=== PATIENT | female | born 1965 | race Caucasian/White ===

== ENCOUNTER 2017-01-15 17:20 | Inpatient (IN) | payer MEDICAID ==
[2017-01-15 17:27] VITALS: O2SAT 99
[2017-01-15 18:18] LABS: HEMATOCRIT 35.8 % (34.0-47.0); MEAN CELL VOLUME 88.7 fl (81.0-99.0); MEAN CORPUSCULAR HEMOGLOBIN 29.4 pg (27.0-31.0); MEAN CORPUSCULAR HGB CONC 33.1 g/dL (33.0-37.0); RED CELL DISTRIBUTION WIDTH 14.5 % (11.5-14.5); WHITE BLOOD COUNT 9.4 K/uL (4.8-10.8)
[2017-01-15 18:24] LABS: RBC URINE 13 /hpf (0-3); URINE BACTERIA RARE (<OCC); URINE BILIRUBIN SMALL (NEGATIVE); URINE BLOOD MODERATE (NEGATIVE); URINE CALCIUM OXALATE CRYSTALS OCC /hpf (<OCC); URINE COLOR AMBER (YELLOW); URINE GLUCOSE (UA) NEG (Normal); URINE KETONE TRACE mg/dL (NEGATIVE); URINE LEUKOCYTE ESTERASE NEG Leu/uL (Negative); URINE PROTEIN 30 mg/dL (NEGATIVE); WBC URINE 3 /hpf (0-5)
[2017-01-15 18:36] LABS: ALB/GLOB RATIO 1.3 (1.0-2.1); ALCOHOL SERUM < 10 mg/dl (0-10); ALKALINE PHOSPHATASE 47 U/L (38-126); ALT/SGPT 27 U/L (9-52); AST/SGOT 24 U/L (14-36); BILIRUBIN,TOTAL 0.9 mg/dl (0.2-1.3); BLOOD UREA NITROGEN 13 mg/dl (7-17); CARBON DIOXIDE 27 mmol/L (22-30); CHLORIDE 103 mmol/L (98-107); GFR AFRICAN-AMERICAN > 60; GLUCOSE,RANDOM 86 mg/dL (65-105); POTASSIUM 4.1 MMOL/L (3.6-5.0); SODIUM 141 mmol/l (132-148); TOTAL PROTEIN 8.1 G/DL (6.3-8.2)
--- NOTE | 2017-01-15 19:03 | ED PDOC ---
HPI: Psych/Substance Abuse Time Seen by Provider: 01/15/17 17:41 Chief Complaint (Nursing): Psychiatric Evaluation Chief Complaint (Provider): hearing voices, "manic", not sleeping History Per: Patient History/Exam Limitations: no limitations Onset/Duration Of Symptoms: Days Current Symptoms Are (Timing): Still Present Additional Complaint(s): PT reports history of bipolar and state she has been off medications for 1 month. PT states she has not slept in a few days and states [facility] time this [facility] Pt also reports feeling very anxious. She states she has hit rock bottom. Past Medical History Reviewed: Historical Data, Nursing Documentation, Vital Signs Vital Signs: Last Vital Signs Temp 98.4 F 01/15/17 17:24 Pulse 73 01/15/17 17:48 Resp 20 01/15/17 17:24 BP 132/100 H 01/15/17 17:48 Pulse Ox 99 01/15/17 17:24 - Medical History PMH: Anxiety, Bipolar Disorder, Depression, Post Traumatic Stress Disorder - Surgical History Surgical History: No Surg Hx - Family History Family History: States: No Known Family Hx - Living Arrangements Living Arrangements: With Family - Social History Current smoker - smoking cessation education provided: No Alcohol: None Drugs: Denies - Home Medications Home Medications: Ambulatory Orders Medication Instructions Recorded No Known Home Med 01/15/17 - Allergies Allergies/Adverse Reactions: Allergies Allergy/AdvReac Type Severity Reaction Status Date / Time No Known Allergies Allergy Verified 01/15/17 17:24 Review of Systems ROS Statement: Except As Marked, All Systems Reviewed And Found Negative Constitutional: Negative for: Fever, Chills Psych: Positive for: Anxiety, Psychosis. Negative for: Suicidal ideation Physical Exam - Reviewed Nursing Documentation Reviewed: Yes Vital Signs Reviewed: Yes - Physical Exam Appears: Positive for: Well, Non-toxic, No Acute Distress Head Exam: Positive for: ATRAUMATIC, NORMAL INSPECTION, NORMOCEPHALIC Skin: Positive for: Normal Color, Warm, DRY Eye Exam: Positive for: Normal appearance, EOMI, PERRL ENT: Positive for: Normal ENT Inspection Neck: Positive for: Normal, Painless ROM Cardiovascular/Chest: Positive for: Regular Rate, Rhythm Respiratory: Positive for: CNT, Normal Breath Sounds Gastrointestinal/Abdominal: Positive for: Normal Exam, Bowel Sounds, Soft. Negative for: Tenderness Back: Positive for: Normal Inspection Extremity: Positive for: Normal ROM Neurologic/Psych: Positive for: Alert, Oriented - Laboratory Results Result Diagrams: 01/15/17 18:05 01/15/17 18:05 - ECG O2 Sat by Pulse Oximetry: 99 Pulse Ox Interpretation: Normal Disposition - Clinical Impression Clinical Impression: Bipolar disorder - Patient ED Disposition Is Patient to be Admitted: Yes - Disposition Disposition Time: 20:05 Condition: GOOD Forms: CodeEval (Tristanian) - Pt Status Changed To: Hospital Disposition Of: Inpatient - Admit Certification Admit to Inpatient:: After my assessment, the patient will require hospitalization for at least two midnights. This is because of the severity of symptoms shown, intensity of services needed, and/or the medical risk in this patient being treated as an outpatient. - POA Present On Arrival: None
--- NOTE | 2017-01-15 22:07 | ED PDOC ---
- Laboratory Results Result Diagrams: 01/15/17 18:05 01/15/17 18:05 - ECG O2 Sat by Pulse Oximetry: 99 - Progress ED Course And Treament: 1999 Signed out to me pending BP re-evaluation 2100 Repeat BP: 136/97 Disposition - Clinical Impression Clinical Impression: Bipolar disorder - POA Present On Arrival: None - Disposition Disposition: Admitted as In-Patient Disposition Time: 21:00 Condition: STABLE
[2017-01-15] MEDS ORDERED: DiphenhydrAMINE 50 mg/ml Inj IM PRN (23:09)
[2017-01-15] MEDS ORDERED: Alum-Mag Hydrox-Simethicone Susp (30 mL) PO PRN (23:09)
[2017-01-15] MEDS ORDERED: Magnesium Hydroxide Susp 30 ml UD PO PRN (23:09)
--- NOTE | 2017-01-15 23:33 | PCM.BM ---
<SmileystephenieRobertoJarenhiren Pathak - Last Filed: 01/15/17 23:29> Treatment Plan Problems - Problems identified on initial assessmt Hopelessness/Helplessness Date Initiated: 01/15/17 Time Initiated: 23:00 Assessment reference: NA Status: Active Treatment assets and liabiliti Patient Assests: cooperative, educated (teacher), good support system Patient Liabilities: other (non compliance with medication) - Milieu Protocol Maintain good personal hygiene: daily Encourage regular showers, daily Remind patient to perform daily oral care, daily Assist patient to perform ADL's Conduct patient checks and document Observation sheet: Q15 minutes Maintain personal safety: every shift Educate patient to report safety concerns to staff, every shift Monitor environment for contraband/sharps Medication safety: Monitor for expected outcome, potential side effects: every shift, Assess barriers to learning: every shift, Assess readiness for medication education: every shift Family Contact Family involvement: Family/SO is involved Family contact: Patient agrees to contact Family contact name: [phone] - Goals for Treatment Patient goals for treatment: "I WANT TO EASE MY ANXIETY AND SLEEP" Discharge/Continuing Care - Education Needs Education Needs: Patient Medication, Patient Diagnosis/Disease Process, Patient Coping Skills, Patient Activities of Daily Living, Patient Aftercare Safety Plan - Discharge Discharge Criteria: Tolerates medication w/o severe side effects, Normal sleep pattern <Aissatou Ventura - Last Filed: 01/16/17 10:43> - Diagnosis (1) Bipolar disorder Status: Acute Interventions: Medication management, individual and group therapy, psychoeducation 01/16/17 10:44 <Araceli Madden - Last Filed: 01/16/17 11:52> Treatment Plan Problems - Problems identified on initial assessmt Hopelessness/Helplessness Priority: 1 Auditory Hallucinations Date Initiated: 01/16/17 Time Initiated: 11:47 Assessment reference: SW, NA Status: Active Priority: 2 Treatment assets and liabiliti Patient Assests: insightful, ADL independent, cognitively intact, good interpersonal skills Patient Liabilities: financial problems, other Family Contact Family contact: Telephone contact initiated by staff Family contact name: Priscilla Sprague Family contacted how many times per week?: 2 Family contact comment: [phone] Discharge/Continuing Care - Education Needs Education Needs: Family Medication, Family Diagnosis/Disease Process, Family Coping Skills, Family Community resources, Family Aftercare Safety Plan, Patient Community resources - Discharge Discharge Criteria: Free of Suicidal thoughts, Free of paranoid thoughts, Free of agitation, Ability to care for self Discharge to:: Home, With Family - Additional Comments 01/16/17 10:20 Pt will be referred to OPD upon stabilization. Rn Surgical Pcu discussed referral to [facility] vs. [facility] vs. [facility] due to lack of health insurance and applying for [facility] care. Pt reported she previously treated with [facility] and [facility]. 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 Rn Surgical Pcu will continue to follow case - Treatment Team Participation Discussed with Family/SO: No (Pt's family will be contacted and tx plan will be discussed) Was Patient/Family/SO present at Treatment Team Meeting: Yes
[2017-01-16 08:31] LABS: T4 8.8 ug/dl (5.5-11.0)
[2017-01-16 08:45] LABS: THYROID STIMULATING HORMONE 2.36 mIU/ML (0.46-4.68)
--- NOTE | 2017-01-16 10:07 | PCM.PSYCH ---
Initial Psychiatric Evaluation - Initial Psychiatric Evaluation Type of Admission: Voluntary Legal Status: Capacity Chief Complaint (in patient's own words): "I'm depressed." Patient's Reaction to Hospitalization: HPI: 51 y/o female presented the ER with complaints of depression, anxiety, and auditory hallucinations. Pt reports that she has a hx of Bipolar disorder and has not taken medication in several months since moving from the [place] to [place]. Pt reports current mood swings, poor appetite, insomnia x 4 days, anxiety, paranoia that others are in the room with her or in her apartment, feeling on edge and very overwhelmed. Pt denied current SI/HI thoughts. Pt able to contract for safety at this time. Pt reports that her current psychiatric state has severely impaired her ability to work and care for her 14 year old daughter. pt reports that her daughter is now in the care of her father. Pt reports that she has not been in mental health treatment for over two years since losing her insurance. Pt reports that she attempted to self -medicate with alcohol two days in order to help with her sleep, however reports that it was not helpful and made her mental health sx worse. Reports recent AH, but no current. PPHx: Pt reports a hx of several psych admission. Pt reports that she was last hospitalized 2 years while living in [place]. Reports h/o tx w/ multiple medications including [place], Depakote, Zyprexa, Seroquel, Wellbutrin, Klonopin , Ambien. H/o suicide attempt by OD >20 years ago. PMHx: Pt denies acute/chronic medical issues ALL: NKDA SHx: Denies drug use, reports intermittent ETOH use, no h/o w/drawals. FHx: Sister w/ schizophrenia Current Medications: Active Medications Generic Name Dose Route Start Last Admin Trade Name Freq PRN Reason Stop Dose Admin Acetaminophen 650 mg 01/15/17 23:14 Tylenol 325mg Tab PO Q4 PRN Pain, moderate (4-7) Al Hydrox/Mg Hydrox/Simethicone 30 ml 01/15/17 23:09 Maalox Plus 30 Ml PO Q4 PRN Dyspepsia Diphenhydramine HCl 50 mg 01/15/17 23:09 Benadryl IM Q6 PRN Extrapyramidal S/S Unable PO Diphenhydramine HCl 50 mg 01/15/17 23:09 Benadryl PO Q6 PRN Extrapyramidal Symptoms Diphenhydramine HCl 50 mg 01/15/17 23:12 01/15/17 23:49 Benadryl PO 50 mg HS PRN Administration Sleep Haloperidol 5 mg 01/15/17 23:09 01/15/17 23:49 Haldol PO 5 mg Q4 PRN Administration Agitation Haloperidol Lactate 5 mg 01/15/17 23:09 Haldol IM Q4 PRN Agitation, Unable to Take PO Lorazepam 2 mg 01/15/17 23:09 Ativan IM Q4 PRN Anxiety/Agitation,Unable PO Lorazepam 2 mg 01/15/17 23:09 Ativan PO Q4 PRN Anxiety/Agitation Magnesium Hydroxide 30 ml 01/15/17 23:09 Milk Of Magnesia PO HS PRN Constipation Past Psychiatric History - Past Psychiatric History Previous Treatment History: Inpatient Pertinent Medical Hx (Current Medical&Sleep Prob, Allergies): Allergies Allergy/AdvReac Type Severity Reaction Status Date / Time No Known Allergies Allergy Verified 01/15/17 17:24 No Known Home Med 01/15/17 Review of Systems - Psychiatric Psychiatric: As Per HPI, Abnormal Sleep Pattern, Anhedonia, Anxiety, Auditory Hallucinations, Change in Appetite, Depression, Difficulty Concentrating, Hopelessness, Irritability, Mood Swings, Paranoia, Suicidal Ideation Mental Status Examination - Personal Presentation Personal Presentation: Looks stated age - Affect Affect: Constricted - Motor Activity Motor Activity: Calm - Reliability in Providing Information Reliability in Providing Information: Fair - Speech Speech: Coherent - Mood Mood: Depressed - Formal Thought Process Formal Thought Process: Paranoia - Hallucinations/Delusions Additional comments: Denies AH/VH, reports recent paranoia - Obsessions/Compulsions Obsessions: No Compulsions: No - Cognitive Functions Orientation: Person, Place, Situation, Time Sensorium: Alert Attention/Concentration: Attentive Estimate of Intelligence: Average Judgement: Intact, as evidence by: Good judgement, Intact, as evidence by: Insight regarding need for hospitalization Memory: Recent intact, as evidence by: Ability to recall events of the day, Remote intact, as evidenced by: Abilit to recall sig. life events, Remote intact , as evidenced by: Ability to recall historical events - Risk Risk: Diminished functioning - Strength & Assets Inventory Strength & Assets Inventory: Cooperative DSM 5 DX - DSM 5 DSM 5 Diagnosis: Bipolar Disorder w/ psychotic features; r/o schizoaffective disorder - Recommended/Plan of Treatment Treatment Recommendations and Plan of Treatment: Bipolar Disorder w/ psychotic features; r/o schizoaffective disorder -Admit to psychiatry -Individual and group therapy -Start Risperdal 1 mg PO HS -Medicine consult -Disposition planning Projected ELOS: 3-7 days Discharge Plan and Discharge Criteria: Discharge when psychiatrically stable - Smoking Cessation Smoking Cessation Initiated: No Reason for not providing: Not indicated
--- NOTE | 2017-01-16 12:31 | CP.PCM.CON ---
History of Present Illness - History of Present Illness History of Present Illness: Reason for Consult: per hospital protocol HPI 51F no past medical history admitted to psych for paranoia and insomnia. Patient denies any complaints at this time. NAD, VSS. ROS: per HPI, 12 systems reviewed and negative PMH: denies PSH: denies FH: denies SH: denies tobacco, ETOH, IVDU Meds: as below Allergies: NKDA Vitals: reviewed and currently stable Temp Pulse Resp BP Pulse Ox 97.9 F 72 20 131/90 99 01/16/17 05:47 01/16/17 05:47 01/16/17 05:47 01/16/17 05:47 01/16/17 03:45 Exam: GEN: WDWN, alert, cooperative HEENT: NCAT, PERRL, EOMI NECK: supple, no JVD, no lymphadenopathy CARDIAC: +S1S2 RRR LUNG: CTAB No WRR ABD: SOFT NT ND BSX4 NO MASSES NO HSM EXT: +pedal pulses, equal strength NEURO: AAOx3 SKIN warm, dry PSYCH normal mood, normal affect Labs: 01/15/17 18:05 01/15/17 18:05 01/15/17 23:09 Aluminum Hydroxide/Magnesium [Maalox Plus 30 ml] 30 ml PO Q4 PRN DiphenhydrAMINE [Benadryl] 50 mg IM Q6 PRN DiphenhydrAMINE [Benadryl] 50 mg PO Q6 PRN Haloperidol Lactate [Haldol] 5 mg IM Q4 PRN Haloperidol [Haldol] 5 mg PO Q4 PRN LORazepam [Ativan] 2 mg IM Q4 PRN LORazepam [Ativan] 2 mg PO Q4 PRN Magnesium Hydroxide [Milk Of Magnesia] 30 ml PO HS PRN 01/15/17 23:12 DiphenhydrAMINE [Benadryl] 50 mg PO HS PRN 01/15/17 23:14 Acetaminophen [Tylenol 325mg tab] 650 mg PO Q4 PRN 01/16/17 10:42 Zolpidem [Ambien] 5 mg PO HS PRN 01/16/17 22:00 risperiDONE [RisperDAL Tab] 1 mg PO HS Assessment and Plan: 51F no past medical history admitted to psych for paranoia and insomnia. Patient denies any complaints at this time. NAD, VSS. Paranoia Management per psych team Past Patient History - Past Social History Alcohol: None Drugs: Denies - CARDIAC Hx Cardiac Disorders: No - PULMONARY Hx Respiratory Disorders: No - PSYCHIATRIC Hx Substance Use: No - SURGICAL HISTORY Hx Surgeries: Yes Other/Comment: L bunionectomy Meds Allergies/Adverse Reactions: Allergies Allergy/AdvReac Type Severity Reaction Status Date / Time No Known Allergies Allergy Verified 01/15/17 17:24 - Medications Medications: Current Medications Acetaminophen (Tylenol 325mg Tab) 650 mg PO Q4 PRN PRN Reason: Pain, moderate (4-7) Al Hydrox/Mg Hydrox/Simethicone (Maalox Plus 30 Ml) 30 ml PO Q4 PRN PRN Reason: Dyspepsia Diphenhydramine HCl (Benadryl) 50 mg IM Q6 PRN PRN Reason: Extrapyramidal S/S Unable PO Diphenhydramine HCl (Benadryl) 50 mg PO Q6 PRN PRN Reason: Extrapyramidal Symptoms Diphenhydramine HCl (Benadryl) 50 mg PO HS PRN PRN Reason: Sleep Last Admin: 01/15/17 23:49 Dose: 50 mg Haloperidol (Haldol) 5 mg PO Q4 PRN PRN Reason: Agitation Last Admin: 01/15/17 23:49 Dose: 5 mg Haloperidol Lactate (Haldol) 5 mg IM Q4 PRN PRN Reason: Agitation, Unable to Take PO Lorazepam (Ativan) 2 mg IM Q4 PRN PRN Reason: Anxiety/Agitation,Unable PO Lorazepam (Ativan) 2 mg PO Q4 PRN PRN Reason: Anxiety/Agitation Magnesium Hydroxide (Milk Of Magnesia) 30 ml PO HS PRN PRN Reason: Constipation Risperidone (Risperdal Tab) 1 mg PO HS FREDDY Zolpidem Tartrate (Ambien) 5 mg PO HS PRN PRN Reason: Insomnia Results - Vital Signs Recent Vital Signs: Last Vital Signs Temp 97.9 F 01/16/17 05:47 Pulse 72 01/16/17 05:47 Resp 20 01/16/17 05:47 BP 131/90 01/16/17 05:47 Pulse Ox 99 01/16/17 03:45 - Labs Result Diagrams: 01/15/17 18:05 01/15/17 18:05 Labs: Laboratory Results - last 24 hr 01/16/17 01/16/17 07:00 07:00 Hemoglobin A1c 5.9 Triglycerides 61 Cholesterol 148 LDL Cholesterol Direct 65 HDL Cholesterol 51 Thyroxine (T4) 8.80 TSH 3rd Generation 2.36
--- NOTE | 2017-01-17 11:07 | PCM.PYCHPN ---
Psychiatric Progress Note - Psychiatric Progress Note Patient seen today, length of contact: Patient evaluated, case discussed with team, chart reviewed, 35 min Patient Chief Complaint: "I'm depressed." Problems Identified/Issues Discussed: Patient reports that she continues to feel like someone is mumbling to her at night (AH) and also reports that she feels like someone is pushing her to keep her awake (tactile hallucination?). She reports continued depressed mood and does not understand why she feels depressed. She reports continued difficulty falling asleep and staying asleep. She states that Ambien has been helpful for her in the past. She is calm, cooperative and interested in attending groups. +Improved appetite. Medication Change: Yes (Increase Risperdal to 2 mg PO HS) Medical Record Reviewed: Yes Consults ordered or reviewed: Medicine consult appreciated Mental Status Examination - Cognitive Function Orientation: Person, Place, Situation, Time Memory: Intact Attention: WNL Concentration: WNL Association: WNL Fund of Knowledge: WNL - Mood Mood: Depressed - Affect Affect: Constricted - Speech Speech: Appropriate - Formal Thought Process Formal Thought Process: Hallucinations Psychotic Thoughts and Behaviors: +AH, possible tactile hallucinations - Suicidal Ideation Suicidal Ideation: No - Homicidal Ideation Homicidal Ideation: No Goal/Treatment Plan - Goal/Treatment Plan Need for Continued Stay: Remain at risks for inpatient hospitalization, Severe depression anxiety, Discharge may exacerbated symptoms Progress Toward Problem(s) and Goals/Treatment Plan: Bipolar Disorder w/ psychotic features; r/o schizoaffective disorder -Individual and group therapy -Increase Risperdal to 2 mg PO HS -Medicine consult -Disposition planning -Ambien 5 mg PO PRN insomnia Estimated Date of D/C: 01/20/17 - Smoking Cessation Smoking Cessation Initiated: No Reason for not providing: Not indicated
[2017-01-17] MEDS: Tmp-Smz 800 mg-160 mg DS Tab PO SCH (21:19)
[2017-01-18] MEDS: Tmp-Smz 800 mg-160 mg DS Tab PO SCH ×2 (08:30→21:17)
--- NOTE | 2017-01-18 12:09 | PCM.PYCHPN ---
Psychiatric Progress Note - Psychiatric Progress Note Patient seen today, length of contact: Patient evaluated, case discussed with team, chart reviewed, 35 min Patient Chief Complaint: "I'm depressed." Problems Identified/Issues Discussed: Patient reports that she continues to feel like someone is mumbling to her at night (AH), but she can not distinguish what they say. She continues to have difficulty sleeping and states that her increased paranoia at night contribute to her insomnia. She reports continued depressed mood and does not understand why she feels depressed. She reports that the ambien was not helpful. She is calm, cooperative and interested in attending groups. Medication Change: Yes (Increase Risperdal to 3 mg PO HS, Klonopin 0.5 mg PO HS) Medical Record Reviewed: Yes Consults ordered or reviewed: Medicine consult appreciated Mental Status Examination - Cognitive Function Orientation: Person, Place, Situation, Time Memory: Intact Attention: WNL Concentration: WNL Association: WN Fund of Knowledge: WNL - Mood Mood: Depressed - Affect Affect: Constricted - Speech Speech: Appropriate - Formal Thought Process Formal Thought Process: Hallucinations Psychotic Thoughts and Behaviors: +AH, possible tactile hallucinations, paranoia - Suicidal Ideation Suicidal Ideation: No - Homicidal Ideation Homicidal Ideation: No Goal/Treatment Plan - Goal/Treatment Plan Need for Continued Stay: Remain at risks for inpatient hospitalization, Severe depression anxiety, Discharge may exacerbated symptoms Progress Toward Problem(s) and Goals/Treatment Plan: Bipolar Disorder w/ psychotic features; r/o schizoaffective disorder -Individual and group therapy -Increase Risperdal to 3 mg PO HS -Medicine consult appreciated- patient being treated for a UTI -Disposition planning -Stop Ambien 5 mg PO PRN insomnia -Start Klonopin 0.5 mg PO HS PRN anxiety Estimated Date of D/C: 01/20/17
[2017-01-19] MEDS: Tmp-Smz 800 mg-160 mg DS Tab PO SCH ×2 (08:44→21:13)
--- NOTE | 2017-01-19 12:19 | PCM.PYCHPN ---
Psychiatric Progress Note - Psychiatric Progress Note Patient seen today, length of contact: Patient evaluated, case discussed with team, chart reviewed, 35 min Patient Chief Complaint: "I'm feeling better" Problems Identified/Issues Discussed: Patient reports that she is improving clinically. She denies auditory hallucinations last night. She reports improved sleep but reports that she continues to have difficulty falling asleep. She denies current paranoia. Milling Machine Set Up Operator discussed CBT oriented therapy and cognitive distortions with the patient. She is calm, cooperative and interested in attending groups. Medication Change: No Medical Record Reviewed: Yes Mental Status Examination - Cognitive Function Orientation: Person, Place, Situation, Time Memory: Intact Attention: WNL Concentration: WNL Association: WN Fund of Knowledge: [facility] Decription of patient's judgement and insights: Good I/J - Mood Mood: Depressed, Neutral - Affect Affect: Constricted - Speech Speech: Appropriate - Formal Thought Process Formal Thought Process: No Impairment Psychotic Thoughts and Behaviors: +Denies AH/VH/paranoia/delusions - Suicidal Ideation Suicidal Ideation: No - Homicidal Ideation Homicidal Ideation: No Goal/Treatment Plan - Goal/Treatment Plan Need for Continued Stay: Remain at risks for inpatient hospitalization, Severe depression anxiety, Discharge may exacerbated symptoms Progress Toward Problem(s) and Goals/Treatment Plan: Bipolar Disorder w/ psychotic features; patient is improving clinically, will likely discharge to home tomorrow w/ outpatient follow-up -Continue Risperdal 3 mg PO HS -Medicine consult appreciated- patient being treated for a UTI -Disposition planning -Continue Klonopin 0.5 mg PO HS PRN anxiety Estimated Date of D/C: 01/20/17
[2017-01-20 06:09] VITALS: BP 103/69; PULSE 75; RESP 18; TEMP 98.1
--- NOTE | 2017-01-20 08:22 | PCM.PYCHDC ---
Mental Status Examination - Mental Status Examination Orientation: Person, Place, Situation, Time Memory: Intact Mood: Neutral Affect: Broad Speech: Appropriate Attention: WNL Concentration: WNL Association: WNL Fund of Knowledge: WNL Formal Thought Process: No Impairment Description of patient's judgement and insight: Good I/J Psychotic Thoughts and Behaviors: Denies AH/VH/paranoia/delusions Suicidal Ideation: No Current Homicidal Ideation?: No Discharge Summary - Discharge Note Reason for Hospitalization: HPI: 51 y/o female presented the ER with complaints of depression, anxiety, and auditory hallucinations. Pt reports that she has a hx of Bipolar disorder and has not taken medication in several months since moving from the [place] to [place]. Pt reports current mood swings, poor appetite, insomnia x 4 days, anxiety, paranoia that others are in the room with her or in her apartment, feeling on edge and very overwhelmed. Pt denied current SI/HI thoughts. Pt able to contract for safety at this time. Pt reports that her current psychiatric state has severely impaired her ability to work and care for her 14 year old daughter. pt reports that her daughter is now in the care of her father. Pt reports that she has not been in mental health treatment for over two years since losing her insurance. Pt reports that she attempted to self -medicate with alcohol two days in order to help with her sleep, however reports that it was not helpful and made her mental health sx worse. Reports recent AH, but no current. PPHx: Pt reports a hx of several psych admission. Pt reports that she was last hospitalized 2 years while living in [place]. Reports h/o tx w/ multiple medications including [place], Depakote, Zyprexa, Seroquel, Wellbutrin, Klonopin , Ambien. H/o suicide attempt by OD >20 years ago. PMHx: Pt denies acute/chronic medical issues ALL: NKDA SHx: Denies drug use, reports intermittent ETOH use, no h/o w/drawals. FHx: Sister w/ schizophrenia Consultations:: List each consultation separately and include: 1. Reason for request. 2. Findings. 3. Follow-up Consultations: Medicine consult appreciated Summary of Hospital Course include:: 1. Description of specific treatment plan utilized for patients during their course of treatmen. 2. Summarize the time- course for resolution of acute symptoms and/or regressed behaviors. 3. Describe issues identified and worked on during hospitalization. 4. Describe medication utilized. 5. Describe medical problems identified and treated. 6. Reassessment of suicide risk Summary of Hospital Course: Patient admitted to the psychiatry unit. Individual and group therapy were provided. Patient was stabilized on Risperdal 3 mg PO HS and Klonopin 0.5 mg PO HS PRN anxiety. She denies current psychosis, reports improved mood and sleep. She is now psychiatrically stable for discharge. - Diagnosis (1) Bipolar disorder Current Visit: Yes Status: Chronic - Final Diagnosis (DSM 5) Condition upon Discharge: STABLE DSM 5: Bipolar Disorder Disposition: HOME/ ROUTINE Follow-up Treatment Plan: Bipolar Disorder w/ psychotic features; patient is currently psychiatrically stable for discharge -Continue Risperdal 3 mg PO HS -Medicine consult appreciated- patient being treated for a UTI, last dose HS -Continue Klonopin 0.5 mg PO HS PRN anxiety -Discharge to home w/ outpatient follow-up Prescriptions/Medication Reconciliation: clonazePAM [Klonopin] 0.5 mg PO HS #30 tab risperiDONE [RisperDAL Tab] 3 mg PO HS #30 tab Sulfamethoxazole/Trimethoprim [Bactrim DS Tab] 1 tab PO Q12 #1 tab - Smoking Cessation Smoking Cessation Medication prescribed: No Reason for not providing: Not indicated - Antipsychotic Medications Pt discharged on 2 or more routine antipsychotic medications: No
[2017-01-20] MEDS: Tmp-Smz 800 mg-160 mg DS Tab PO SCH (08:23)
== END 2017-01-20 10:00 | disposition home or self-care (01) | DRG 885 ==
LOC: H.ER 17:20 → H.ERHOLD 19:57 → H.STEP 23:02
PROVIDERS: ADMIT Psychiatry & Neurology Psychiatry; ATTEND Psychiatry & Neurology Psychiatry
PROC: GZHZZZZ Group Psychotherapy (ICD-10-PCS; principal; 2017-01-15)
DX: F31.5 Bipolar disorder, current episode depressed, severe, with psychotic features (principal); N39.0 Urinary tract infection, site not specified; G47.00 Insomnia, unspecified; F41.9 Anxiety disorder, unspecified